=== PATIENT | female | born 1945 | race Caucasian/White ===

== ENCOUNTER 2019-03-27 10:12 | Emergency (ER) | payer MEDICARE ==
[2019-03-27 10:20] VITALS: BP 151/66; PULSE 104; RESP 18; TEMP 97.7
[2019-03-27] MEDS ORDERED: KETOROLAC 30 MG/ML 1 ML VIAL IM STA (10:50)
[2019-03-27] MEDS ORDERED: LIDOCAINE 5% PATCH TOPICAL STA (10:50)
--- NOTE | 2019-03-27 10:57 | ED ---
Back Pain HPI - General Chief Complaint: Back Pain/Injury Stated Complaint: Back pain Time Seen by Provider: 03/27/19 10:22 Source: patient Limitations: no limitations - History of Present Illness Initial Comments: Patient is a 73-year-old female presenting to emergency Department with complaints of mid back pain that started 2 days ago. Patient denies any injuries or trauma to the back. Patient states she woke up in the morning with the pain and describes it as burning, sharp, and tightness. Patient has been using [id number] lidocaine cream and Tylenol without improvement in her pain. Patient states she has never had pain like this before. Patient does admit to having chickenpox when she was little. Patient denies fever, chills, nausea, vomiting, diarrhea. Patient has no other complaints at this time. Upon arrival to ER, vital signs are stable. - Related Data Home Medications Medication Instructions Recorded Confirmed Hydrochlorothiazide [Hydrodiuril] 25 mg PO DAILY 03/27/19 03/27/19 Levothyroxine Sodium [Synthroid] 200 mcg PO DAILY 03/27/19 03/27/19 Rosuvastatin [Crestor] 10 mg PO DAILY 03/27/19 03/27/19 amLODIPine BESYLATE [Norvasc] 10 mg PO DAILY 03/27/19 03/27/19 Previous Rx's Medication Instructions Recorded Ketorolac [Toradol] 10 mg PO Q8HR #10 tab 03/27/19 Lidocaine 5% Patch [Lidoderm 5% 1 patch TOPICAL DAILY 7 Days #7 03/27/19 Patch] patch valACYclovir HCL [Valtrex] 1,000 mg PO Q8HR 7 Days #21 tab 03/27/19 Allergies Allergy/AdvReac Type Severity Reaction Status Date / Time adhesive tape Allergy Rash/Hives Verified 03/27/19 11:05 NSAIDS (Non-Steroidal Allergy Rash/Hives Verified 03/27/19 11:05 Anti-Inflamma oxytetracycline Allergy Rash/Hives Verified 03/27/19 11:05 [From Terramycin] Sulfa (Sulfonamide Allergy Rash/Hives Verified 03/27/19 11:05 Antibiotics) prochlorperazine AdvReac Vomiting Verified 03/27/19 11:05 [From Compazine] Review of Systems ROS Statement: Those systems with pertinent positive or pertinent negative responses have been documented in the HPI. ROS Other: All systems not noted in ROS Statement are negative. Past Medical History Past Medical History: Hypertension History of Any Multi-Drug Resistant Organisms: None Reported Past Surgical History: Bariatric Surgery, Section, Hysterectomy Past Psychological History: No Psychological Hx Reported Smoking Status: Never smoker Past Alcohol Use History: None Reported Past Drug Use History: None Reported General Exam - General Exam Comments Initial Comments: GENERAL: Well-appearing, well-nourished and in no acute distress, but appears uncomfortable. HEAD: Atraumatic, normocephalic. EYES: Pupils equal round and reactive to light, extraocular movements intact, sclera anicteric, conjunctiva are normal. ENT: Nares patent, oropharynx clear without exudates. Moist mucous membranes. NECK: Normal range of motion, supple without lymphadenopathy or JVD. LUNGS: Breath sounds clear to auscultation bilaterally and equal. No wheezes rales or rhonchi. HEART: Regular rate and rhythm without murmurs, rubs or gallops. ABDOMEN: Soft, nontender, normoactive bowel sounds. No masses appreciated. EXTREMITIES: Normal range of motion, no pitting or edema. No clubbing or cyanosis. Normal range of motion of her trunk. NEUROLOGICAL: Cranial nerves II through XII grossly intact. Normal speech, normal gait. PSYCH: Normal mood, normal affect. SKIN: Warm, Dry, normal turgor,. There are a few scattered erythematous papules along the left T8-T9 dermatome, starting on the back and wrapping onto her side. Limitations: no limitations Course Vital Signs 03/27/19 10:17 Temperature 97.7 F Pulse Rate 104 H Respiratory 18 Rate Blood Pressure 151/66 O2 Sat by Pulse 97 Oximetry Medical Decision Making - Medical Decision Making Patient is a 73-year-old female presenting with signs and symptoms consistent with shingles along the left T8-T9 dermatome. Patient will be started on Toradol, lidocaine patch, and antivirals. Patient stable for discharge at this time. Return parameters were discussed with the patient she verbalized und erstanding. Disposition Clinical Impression: Shingles Disposition: HOME SELF-CARE Condition: Stable Instructions (If sedation given, give patient instructions): Shingles (ED) Additional Instructions: Please return to the Emergency Department if symptoms worsen or any other concerns. Continue with NSAIDs as well as the patches and antiviral medications as discussed. Follow up with PCP as needed. Prescriptions: Lidocaine 5% Patch [Lidoderm 5% Patch] 1 patch TOPICAL DAILY 7 Days #7 patch Ketorolac [Toradol] 10 mg PO Q8HR #10 tab valACYclovir HCL [Valtrex] 1,000 mg PO Q8HR 7 Days #21 tab Is patient prescribed a controlled substance at d/c from ED?: No Referrals: None,Stated [Primary Care Provider] - 1-2 days
== END 2019-03-27 11:15 | disposition home or self-care (01) ==
LOC: EC 10:12
DX: B02.9 Zoster without complications (principal); I10 Essential (primary) hypertension; Z88.1 Allergy status to other antibiotic agents; Z88.2 Allergy status to sulfonamides; Z88.6 Allergy status to analgesic agent; Z88.8 Allergy status to other drugs, medicaments and biological substances; Z91.048 Other nonmedicinal substance allergy status; Z79.899 Other long term (current) drug therapy; Z86.19 Personal history of other infectious and parasitic diseases
CPT/HCPCS: 99283; 96372; J1885